=== PATIENT | male | born 1995 | race Caucasian/White ===

== ENCOUNTER 2017-05-21 13:43 | Emergency (ER) | payer BC ==
[~2017-05-21] VITALS: Ht 185.4 cm; Wt 86.6 kg
[2017-05-21 14:43] VITALS: Ht 185.4 cm; Wt 86.6 kg
[2017-05-21 17:45] VITALS: BP 121/71
== END 2017-05-21 17:45 | disposition home or self-care (01) ==
LOC: ED 13:43
DX: S63.502A Unspecified sprain of left wrist, initial encounter (principal); W18.30XA Fall on same level, unspecified, initial encounter; Y93.66 Activity, soccer; Y99.8 Other external cause status; Y92.89 Other specified places as the place of occurrence of the external cause